=== PATIENT | female | born 1960 | race Two or more races ===

== ENCOUNTER → 2019-02-09 | Outpatient (CLI) | payer BC | END | disposition home or self-care (01) | LOC: US 07:45 | PROVIDERS: ATTEND Internal Medicine Endocrinology, Diabetes & Metabolism | DX: Z12.31 Encounter for screening mammogram for malignant neoplasm of breast (principal); N28.1 Cyst of kidney, acquired; K83.8 Other specified diseases of biliary tract; Z78.0 Asymptomatic menopausal state | CPT/HCPCS: 76700; 77067; 77080 ==

== ENCOUNTER → 2019-03-15 | Outpatient (CLI) | payer BC ==
[2019-03-15 11:50] LABS: CHLORIDE 111 mEq/L (98-107)
[2019-03-15 11:56] LABS: LDL CHOLESTEROL 101 mg/dL (5-100)
[2019-03-15 11:59] LABS: HDL CHOLESTEROL 66 mg/dL (40-59)
[2019-03-15 12:01] LABS: T4 FREE 1.05 ng/dL (0.76-1.46)
[2019-03-16 09:11] LABS: VITAMIN D 25-OH 40.4 ng/mL (30.0-100.0)
[2019-03-16 15:12] LABS: A/G RATIO 1.1 (0.7-1.7); ALBUMIN 3.6 g/dL (2.9-4.4); ALPHA-1-GLOBULIN 0.2 g/dL (0.0-0.4); ALPHA-2-GLOBULIN 0.7 g/dL (0.4-1.0); BETA GLOBULIN 1.2 g/dL (0.7-1.3); GAMMA GLOBULINS 1.3 g/dL (0.4-1.8); GLOBULIN TOTAL 3.4 g/dL (2.2-3.9); M-SPIKE Not Observed g/dL (Not Observed)
== END | disposition home or self-care (01) ==
LOC: LAB 11:00
PROVIDERS: ATTEND Internal Medicine Endocrinology, Diabetes & Metabolism
DX: R73.9 Hyperglycemia, unspecified (principal); E04.9 Nontoxic goiter, unspecified; M85.89 Other specified disorders of bone density and structure, multiple sites
CPT/HCPCS: 36415; 80061; 82306; 83036; 83735; 83970; 84100; 84155; 84165; 84439; 84443

== ENCOUNTER → 2020-03-20 | Outpatient (CLI) | payer BC ==
[2020-03-20 11:05] LABS: BASOPHILS % 0.7 % (0.0-2.0); EOSINOPHILS % 2.4 % (0.0-5.0); HEMATOCRIT. 42.9 % (36.0-48.0); HEMOGLOBIN. 14.2 g/dL (12.0-16.0); LYMPHOCYTES % 34.1 % (20.0-50.0); MEAN CORPUSCULAR HEMOGLOBIN 27.7 pg (28.0-32.0); MEAN CORPUSCULAR VOLUME 83.6 fL (81.0-99.0); MEAN PLATELET VOLUME 9.4 fl (7.4-10.4); MONOCYTES % 7.7 % (2.0-8.0); NEUTROPHILS % 55.1 % (40.0-76.0); PLATELET 244 x1000/uL (130-400); RED BLOOD CELL COUNT 5.13 mill/uL (4.2-5.4); RED CELL DISTRIBUTION WIDTH 14.2 % (11.6-14.6)
[2020-03-20 11:11] LABS: CHLORIDE 109 mEq/L (98-107)
[2020-03-20 11:18] LABS: PHOSPHORUS 3.4 mg/dL (2.5-4.9)
[2020-03-20 11:19] LABS: LDL CHOLESTEROL 125 mg/dL (5-100)
[2020-03-20 11:20] LABS: HDL CHOLESTEROL 66 mg/dL (40-59)
[2020-03-20 11:21] LABS: T4 FREE 1.09 ng/dL (0.76-1.46)
[2020-03-21 06:10] LABS: ANTI-THYROGLOBULIN AB < 1 IU/mL (0.0-0.9)
== END | disposition home or self-care (01) ==
LOC: MAMMO 10:03
PROVIDERS: ATTEND Internal Medicine Endocrinology, Diabetes & Metabolism
DX: Z12.31 Encounter for screening mammogram for malignant neoplasm of breast (principal); E04.2 Nontoxic multinodular goiter; E78.5 Hyperlipidemia, unspecified; R73.9 Hyperglycemia, unspecified; M85.88 Other specified disorders of bone density and structure, other site
CPT/HCPCS: 36415; 76536; 77067; 80053; 80061; 82306; 83036; 83970; 84100; 84439; 84443; 85025; 86800

== ENCOUNTER → 2020-06-13 | Outpatient (CLI) | payer BC ==
[2020-06-13 11:17] LABS: CLARITY URINE CLEAR (CLEAR); COLOR URINE YELLOW (YELLOW); KETONES URINE NEGATIVE (NEGATIVE); LEUKOCYTE ESTERASE URINE TRACE (NEGATIVE); NITRITE URINE NEGATIVE (NEGATIVE); OCCULT BLOOD URINE NEGATIVE (NEGATIVE); PH URINE 7.5 (4.5-8.0); PROTEIN URINE NEGATIVE (NEGATIVE); SPECIFIC GRAVITY URINE 1.017 (1.005-1.030); UROBILINOGEN URINE 0.2 E.U./dL (0.2-1.0)
== END | disposition home or self-care (01) ==
LOC: LAB 10:45
PROVIDERS: ATTEND Internal Medicine Endocrinology, Diabetes & Metabolism
DX: N39.0 Urinary tract infection, site not specified (principal)
CPT/HCPCS: 81003

== ENCOUNTER → 2021-09-30 | Outpatient (CLI) | payer BC ==
[2021-09-30 12:04] LABS: BASOPHILS % 0.7 % (0.0-2.0); EOSINOPHILS % 3.3 % (0.0-5.0); HEMATOCRIT. 40.6 % (36.0-48.0); HEMOGLOBIN. 13.6 g/dL (12.0-16.0); LYMPHOCYTES % 35.2 % (20.0-50.0); MEAN CORPUSCULAR HEMOGLOBIN 27.1 pg (28.0-32.0); MEAN CORPUSCULAR VOLUME 80.9 fL (81.0-99.0); MEAN PLATELET VOLUME 9.7 fl (7.4-10.4); MONOCYTES % 8.2 % (2.0-8.0); NEUTROPHILS % 52.6 % (40.0-76.0); PLATELET 239 x1000/uL (130-400); RED BLOOD CELL COUNT 5.02 mill/uL (4.2-5.4); RED CELL DISTRIBUTION WIDTH 13.9 % (11.6-14.6)
[2021-09-30 12:20] LABS: CHLORIDE 113 mEq/L (98-107)
[2021-09-30 12:27] LABS: LDL CHOLESTEROL 103 mg/dL (5-100)
[2021-09-30 12:28] LABS: HDL CHOLESTEROL 67 mg/dL (40-59)
[2021-09-30 12:29] LABS: T4 FREE 1.11 ng/dL (0.76-1.46)
[2021-10-01 09:07] LABS: VITAMIN D 25-OH 22.8 ng/mL (30.0-100.0)
== END | disposition home or self-care (01) ==
LOC: LAB 11:34
PROVIDERS: ATTEND Internal Medicine Endocrinology, Diabetes & Metabolism
DX: E78.5 Hyperlipidemia, unspecified (principal); E04.9 Nontoxic goiter, unspecified; R73.9 Hyperglycemia, unspecified; E55.9 Vitamin D deficiency, unspecified
CPT/HCPCS: 36415; 80053; 80061; 82306; 83036; 84439; 84443; 85025; 86800

== ENCOUNTER → 2021-12-09 | Outpatient (CLI) | payer BC ==
[2021-12-09 07:39] LABS: CLARITY URINE CLEAR (CLEAR); COLOR URINE YELLOW (YELLOW); KETONES URINE NEGATIVE (NEGATIVE); LEUKOCYTE ESTERASE URINE TRACE (NEGATIVE); NITRITE URINE NEGATIVE (NEGATIVE); OCCULT BLOOD URINE TRACE (NEGATIVE); PROTEIN URINE NEGATIVE (NEGATIVE)
== END | disposition home or self-care (01) ==
LOC: LAB 06:54
PROVIDERS: ATTEND Internal Medicine Endocrinology, Diabetes & Metabolism
DX: N39.0 Urinary tract infection, site not specified (principal)
CPT/HCPCS: 81003

== ENCOUNTER → 2022-01-08 | Outpatient (CLI) | payer BC ==
[2022-01-08 07:31] LABS: BASOPHILS % 0.6 % (0.0-2.0); HEMATOCRIT. 41.6 % (36.0-48.0); HEMOGLOBIN. 13.7 g/dL (12.0-16.0); LYMPHOCYTES % 36.7 % (20.0-50.0); MEAN CORPUSCULAR HEMOGLOBIN 27.3 pg (28.0-32.0); MEAN CORPUSCULAR VOLUME 82.8 fL (81.0-99.0); MEAN PLATELET VOLUME 9.9 fl (7.4-10.4); MONOCYTES % 8.4 % (2.0-8.0); NEUTROPHILS % 51.3 % (40.0-76.0); PLATELET 220 x1000/uL (130-400); RED BLOOD CELL COUNT 5.03 mill/uL (4.2-5.4); RED CELL DISTRIBUTION WIDTH 13.8 % (11.6-14.6)
[2022-01-08 08:27] LABS: CHLORIDE 109 mEq/L (98-107); HDL CHOLESTEROL 66 mg/dL (40-59); LDL CHOLESTEROL 108 mg/dL (5-100); T4 FREE 1.02 ng/dL (0.76-1.46)
== END | disposition home or self-care (01) ==
LOC: LAB 06:49
PROVIDERS: ATTEND Internal Medicine Endocrinology, Diabetes & Metabolism
DX: E78.00 Pure hypercholesterolemia, unspecified (principal); E04.9 Nontoxic goiter, unspecified; R73.9 Hyperglycemia, unspecified; E55.9 Vitamin D deficiency, unspecified
CPT/HCPCS: 36415; 80053; 80061; 82306; 83036; 84439; 84443; 85025

== ENCOUNTER → 2022-09-30 | Outpatient (CLI) | payer BC ==
[2022-09-30 11:17] LABS: BASOPHILS % 0.6 % (0.0-2.0); EOSINOPHILS % 1.9 % (0.0-5.0); HEMATOCRIT. 42.1 % (36.0-48.0); HEMOGLOBIN. 14.2 g/dL (12.0-16.0); LYMPHOCYTES % 42.2 % (20.0-50.0); MEAN CORPUSCULAR HEMOGLOBIN 27.9 pg (28.0-32.0); MEAN CORPUSCULAR VOLUME 82.5 fL (81.0-99.0); MEAN PLATELET VOLUME 9.7 fl (7.4-10.4); MONOCYTES % 7.5 % (2.0-8.0); NEUTROPHILS % 47.8 % (40.0-76.0); PLATELET 226 x1000/uL (130-400); RED BLOOD CELL COUNT 5.11 mill/uL (4.2-5.4); RED CELL DISTRIBUTION WIDTH 13.9 % (11.6-14.6)
[2022-09-30 11:49] LABS: CHLORIDE 109 mEq/L (98-107)
[2022-09-30 12:04] LABS: HDL CHOLESTEROL 67 mg/dL (40-59); LDL CHOLESTEROL 103 mg/dL (5-100)
== END | disposition home or self-care (01) ==
LOC: MAMMO 08:28
PROVIDERS: ATTEND Internal Medicine Endocrinology, Diabetes & Metabolism
DX: Z12.31 Encounter for screening mammogram for malignant neoplasm of breast (principal); M85.88 Other specified disorders of bone density and structure, other site; E04.2 Nontoxic multinodular goiter; M81.0 Age-related osteoporosis without current pathological fracture; R73.9 Hyperglycemia, unspecified; E55.9 Vitamin D deficiency, unspecified; E78.00 Pure hypercholesterolemia, unspecified
CPT/HCPCS: 36415; 73560; 76536; 77067; 77080; 80053; 80061; 83036; 84439; 84443; 85025

== ENCOUNTER → 2023-02-18 | Day surgery (SDC) | payer BC ==
[~2023-02-18] MED LIST: LIDOCAINE HCL 1% 10 MG/ML 10ML VIAL ONE; SODIUM BICARBONATE 4% (2.4MEQ) 5ML VIAL IV ONE
== END | disposition home or self-care (01) ==
LOC: RAD 10:02
PROVIDERS: ATTEND Internal Medicine Endocrinology, Diabetes & Metabolism
DX: E04.2 Nontoxic multinodular goiter (principal); Z79.899 Other long term (current) drug therapy
CPT/HCPCS: 10005; 10006; 88172; 88173; J3490 ×2; 20206

== ENCOUNTER → 2024-01-24 | Outpatient (CLI) | payer BC ==
[2024-01-24 12:37] LABS: CLARITY URINE CLEAR (CLEAR); COLOR URINE YELLOW (YELLOW); GLUCOSE URINE NEGATIVE (NEGATIVE); KETONES URINE NEGATIVE (NEGATIVE); LEUKOCYTE ESTERASE URINE 1+ (NEGATIVE); NITRITE URINE NEGATIVE (NEGATIVE); OCCULT BLOOD URINE NEGATIVE (NEGATIVE); PH URINE 6.5 (4.5-8.0); PROTEIN URINE NEGATIVE (NEGATIVE); SPECIFIC GRAVITY URINE 1.009 (1.005-1.030); UROBILINOGEN URINE 0.2 E.U./dL (0.2-1.0)
[2024-01-24 13:06] LABS: CARBON DIOXIDE 28 mEq/L (21-32); CHLORIDE 108 mEq/L (98-107); POTASSIUM 3.8 mEq/L (3.5-5.1); SODIUM 140 mEq/L (136-145)
[2024-01-24 13:07] LABS: CALCIUM 9.8 mg/dL (8.7-10.4)
[2024-01-24 13:11] LABS: CREATININE 0.7 mg/dL (0.6-1.0); GLUCOSE 92 mg/dL (70-105)
[2024-01-24 13:12] LABS: TRIGLYCERIDE 99 mg/dL (0-150); UREA NITROGEN BLOOD 8 mg/dL (9-23)
[2024-01-24 13:13] LABS: ALANINE AMINOTRANSFERASE 20 IU/L (10-49); ALBUMIN 4.6 g/dL (3.2-4.8); ASPARTATE AMINOTRANSFERASE 26 IU/L (<34); LDL CHOLESTEROL 118 mg/dL (5-100)
[2024-01-24 13:14] LABS: BILIRUBIN TOTAL 0.5 mg/dL (0.1-1.0); CHOLESTEROL 193 mg/dL (<200); HDL CHOLESTEROL 69 mg/dL (>65); PROTEIN TOTAL 7.6 g/dL (6.0-8.3)
[2024-01-24 13:17] LABS: THYROID STIMULATING HORMONE 0.52 uIU/mL (0.55-4.78)
[2024-01-24 13:18] LABS: T4 FREE 1.16 ng/dL (0.89-1.76)
[2024-01-24 13:20] LABS: VITAMIN B12 SERUM 485 pg/mL (211-911)
[2024-01-24 14:05] LABS: ERYTHROCYTE SEDIMENTATION RATE 10 mm/hr (0-30)
[2024-01-24 14:08] LABS: BACTERIA URINE TRACE; RBC URINE 0-2 /hpf (0-2); SQUAMOUS EPITHELIAL CELL URINE 1+ /lpf (RARE/1+); WBC URINE 0-2 /hpf (0-2)
[2024-01-24 14:12] LABS: BASOPHILS % 0.5 % (0.0-2.0); EOSINOPHILS % 2.8 % (0.0-5.0); HEMATOCRIT. 44.4 % (36.0-48.0); HEMOGLOBIN. 14.5 g/dL (12.0-16.0); LYMPHOCYTES % 40.5 % (20.0-50.0); MEAN CORPUSCULAR HEMOGLOBIN 27.5 pg (28.0-32.0); MEAN CORPUSCULAR HGB CONC 32.7 g/dL (31.0-37.0); MEAN CORPUSCULAR VOLUME 84.2 fL (81.0-99.0); MONOCYTES % 4.7 % (2.0-8.0); NEUTROPHILS % 51.5 % (40.0-76.0); PLATELET 261 x1000/uL (130-400); RED BLOOD CELL COUNT 5.27 mill/uL (4.2-5.4); RED CELL DISTRIBUTION WIDTH 14.2 % (11.6-14.6); WHITE BLOOD COUNT 5.2 x1000/uL (4.5-11.0)
[2024-01-26 09:07] LABS: VITAMIN D 25-OH 29.1 ng/mL (30.0-100.0)
[2024-01-26 13:11] LABS: ANTI-NUCLEAR ANTIBODIES DIRECT Negative (Negative)
== END | disposition home or self-care (01) ==
LOC: RAD 11:09
PROVIDERS: ATTEND Internal Medicine Endocrinology, Diabetes & Metabolism
DX: M81.0 Age-related osteoporosis without current pathological fracture (principal)
CPT/HCPCS: 36415; 77080; 80053; 80061; 81003; 82306; 82607; 83036; 83921; 84439; 84443; 85025; 85651; 86038; 86431

== ENCOUNTER → 2024-04-10 | Outpatient (CLI) | payer BC | END | disposition home or self-care (01) | LOC: NM 08:38 | PROVIDERS: ATTEND Internal Medicine Endocrinology, Diabetes & Metabolism | DX: E05.90 Thyrotoxicosis, unspecified without thyrotoxic crisis or storm (principal) | CPT/HCPCS: 78014; A9516 ==

== ENCOUNTER → 2024-04-16 | Outpatient (CLI) | payer BC ==
[2024-04-16 09:06] LABS: BASOPHILS % 0.7 % (0.0-2.0); HEMATOCRIT. 42.7 % (36.0-48.0); LYMPHOCYTES % 38.2 % (20.0-50.0); MEAN CORPUSCULAR HEMOGLOBIN 27.8 pg (28.0-32.0); MEAN CORPUSCULAR HGB CONC 32.9 g/dL (31.0-37.0); MEAN CORPUSCULAR VOLUME 84.7 fL (81.0-99.0); MEAN PLATELET VOLUME 9.6 fl (7.4-10.4); MONOCYTES % 10.1 % (2.0-8.0); PLATELET 226 x1000/uL (130-400); RED BLOOD CELL COUNT 5.04 mill/uL (4.2-5.4); RED CELL DISTRIBUTION WIDTH 13.8 % (11.6-14.6); WHITE BLOOD COUNT 5.1 x1000/uL (4.5-11.0)
[2024-04-16 09:50] LABS: CARBON DIOXIDE 27 mEq/L (21-32); CHLORIDE 110 mEq/L (98-107); POTASSIUM 4.5 mEq/L (3.5-5.1); SODIUM 142 mEq/L (136-145)
[2024-04-16 09:51] LABS: CALCIUM 9.6 mg/dL (8.7-10.4)
[2024-04-16 09:55] LABS: CREATININE 0.9 mg/dL (0.6-1.0); GLUCOSE 97 mg/dL (70-105)
[2024-04-16 09:56] LABS: TRIGLYCERIDE 83 mg/dL (0-150); UREA NITROGEN BLOOD 7 mg/dL (9-23)
[2024-04-16 09:57] LABS: ALANINE AMINOTRANSFERASE 15 IU/L (10-49); ALBUMIN 4.2 g/dL (3.2-4.8); ASPARTATE AMINOTRANSFERASE 20 IU/L (<34); LDL CHOLESTEROL 91 mg/dL (5-100); T4 FREE 1.38 ng/dL (0.89-1.76)
[2024-04-16 09:58] LABS: BILIRUBIN TOTAL 0.5 mg/dL (0.1-1.0); CHOLESTEROL 158 mg/dL (<200); HDL CHOLESTEROL 57 mg/dL (>65); PHOSPHORUS 3.3 mg/dL (2.5-4.9); PROTEIN TOTAL 7.6 g/dL (6.0-8.3); THYROID STIMULATING HORMONE 0.59 uIU/mL (0.55-4.78)
[2024-04-16 16:38] LABS: VITAMIN B12 SERUM 589 pg/mL (211-911)
== END | disposition home or self-care (01) ==
LOC: LAB 08:20
PROVIDERS: ATTEND Internal Medicine Endocrinology, Diabetes & Metabolism
DX: R73.9 Hyperglycemia, unspecified (principal); E03.9 Hypothyroidism, unspecified; E78.00 Pure hypercholesterolemia, unspecified; M85.80 Other specified disorders of bone density and structure, unspecified site
CPT/HCPCS: 36415; 80053; 80061; 82306; 82607; 83036; 83520; 83735; 83970; 84100; 84439; 84443; 84481; 85025

== ENCOUNTER → 2024-11-21 | Outpatient (CLI) | payer BC ==
[2024-11-21 11:20] LABS: BASOPHILS % 0.6 % (0.0-2.0); DIFFERENTIAL COMMENT 0; EOSINOPHILS % 2.7 % (0.0-5.0); HEMATOCRIT. 41.6 % (36.0-48.0); HEMOGLOBIN. 13.6 g/dL (12.0-16.0); LYMPHOCYTES % 32.2 % (20.0-50.0); MEAN CORPUSCULAR HEMOGLOBIN 27.2 pg (28.0-32.0); MEAN CORPUSCULAR HGB CONC 32.7 g/dL (31.0-37.0); MEAN CORPUSCULAR VOLUME 83.1 fL (81.0-99.0); NEUTROPHILS % 57.5 % (40.0-76.0); PLATELET 233 x1000/uL (130-400); WHITE BLOOD COUNT 5.1 x1000/uL (4.5-11.0)
[2024-11-21 11:25] LABS: CHLORIDE 109 mEq/L (98-107); POTASSIUM 4.7 mEq/L (3.5-5.1); SODIUM 142 mEq/L (136-145)
[2024-11-21 11:26] LABS: CALCIUM 9.1 mg/dL (8.7-10.4); CARBON DIOXIDE 29 mEq/L (21-32)
[2024-11-21 11:31] LABS: CREATININE 0.7 mg/dL (0.6-1.0); GLUCOSE 87 mg/dL (70-105); TRIGLYCERIDE 72 mg/dL (0-150); UREA NITROGEN BLOOD 11 mg/dL (9-23)
[2024-11-21 11:32] LABS: C REACTIVE PROTEIN QUANT 1.4 mg/L (0.0-3.0); LDL CHOLESTEROL 100 mg/dL (5-100)
[2024-11-21 11:33] LABS: ALANINE AMINOTRANSFERASE 14 IU/L (10-49); ALBUMIN 4.4 g/dL (3.2-4.8); ASPARTATE AMINOTRANSFERASE 19 IU/L (<34); CHOLESTEROL 177 mg/dL (<200); CREATINE KINASE 127 IU/L (34-145); HDL CHOLESTEROL 63 mg/dL (>65)
[2024-11-21 11:34] LABS: BILIRUBIN TOTAL 0.6 mg/dL (0.1-1.0); PROTEIN TOTAL 7.3 g/dL (6.0-8.3)
[2024-11-21 11:35] LABS: T4 FREE 1.23 ng/dL (0.89-1.76)
[2024-11-21 11:36] LABS: THYROID STIMULATING HORMONE 0.59 uIU/mL (0.55-4.78)
[2024-11-21 11:52] LABS: ERYTHROCYTE SEDIMENTATION RATE 13 mm/hr (0-30)
[2024-11-21 11:59] LABS: CLARITY URINE CLEAR (CLEAR); COLOR URINE YELLOW (YELLOW); GLUCOSE URINE NEGATIVE (NEGATIVE); KETONES URINE NEGATIVE (NEGATIVE); LEUKOCYTE ESTERASE URINE TRACE (NEGATIVE); NITRITE URINE NEGATIVE (NEGATIVE); OCCULT BLOOD URINE NEGATIVE (NEGATIVE); PH URINE 7.5 (4.5-8.0); PROTEIN URINE NEGATIVE (NEGATIVE); SPECIFIC GRAVITY URINE 1.011 (1.005-1.030); UROBILINOGEN URINE 0.2 E.U./dL (0.2-1.0)
[2024-11-21 12:19] LABS: SQUAMOUS EPITHELIAL CELL URINE 2+ /lpf (RARE/1+); WBC URINE 0-2 /hpf (0-2)
[2024-11-21 12:20] LABS: BACTERIA URINE TRACE; RBC URINE 0-2 /hpf (0-2)
[2024-11-22 09:07] LABS: RF PROFILE < 10.0 IU/mL (<14.0)
[2024-11-22 10:08] LABS: ANTI-NUCLEAR ANTIBODIES DIRECT Negative (Negative)
[2024-11-23 13:12] LABS: CCP IgG/IgA PROFILE 2 units (0-19)
== END | disposition home or self-care (01) ==
LOC: MRI 08:37
PROVIDERS: ATTEND Internal Medicine Endocrinology, Diabetes & Metabolism
DX: S46.811A Strain of other muscles, fascia and tendons at shoulder and upper arm level, right arm, initial encounter (principal); M19.012 Primary osteoarthritis, left shoulder; M51.370 Other intervertebral disc degeneration, lumbosacral region with discogenic back pain only; M48.07 Spinal stenosis, lumbosacral region; M77.8 Other enthesopathies, not elsewhere classified; M67.813 Other specified disorders of tendon, right shoulder; M25.811 Other specified joint disorders, right shoulder; M25.78 Osteophyte, vertebrae; M86.9 Osteomyelitis, unspecified; M25.512 Pain in left shoulder; M25.511 Pain in right shoulder; X58.XXXA Exposure to other specified factors, initial encounter; Y93.89 Activity, other specified; Y92.89 Other specified places as the place of occurrence of the external cause; Y99.8 Other external cause status
CPT/HCPCS: 36415; 72148; 73221; 80053; 80061; 81003; 82550; 83036; 84439; 84443; 85025; 85651; 86038; 86140; 86200; 86431

== ENCOUNTER → 2025-01-10 | Outpatient (CLI) | payer BC | END | disposition home or self-care (01) | LOC: RAD 09:59 | PROVIDERS: ATTEND Internal Medicine Endocrinology, Diabetes & Metabolism | DX: M25.512 Pain in left shoulder (principal); M25.511 Pain in right shoulder | CPT/HCPCS: 73030 ==